=== PATIENT | female | born 1965 | race African-American/Black ===

== ENCOUNTER 2017-10-07 17:04 | Emergency (ER) | payer BC ==
[2017-10-07] MEDS: LIDOCAINE 2% 20 ML VIAL. IJ ×2 (17:30)
[2017-10-07] MEDS: GELATIN SPONGE SIZE 12-7MM SPONGE. TP ×2 (18:40)
[2017-10-07] MEDS: HYDROcodone/APAP 5/325MG 1 TAB TABLET PO ×2 (18:40)
[2017-10-07] MEDS: DIPHTH,PERTUSS(ACELL),TET TOX 0.5 ML DISP.SYRIN. VAX IM ×2 (19:00)
== END 2017-10-07 19:13 | disposition home or self-care (01) ==
LOC: ER 17:04
DX: S61.213A Laceration without foreign body of left middle finger without damage to nail, initial encounter (principal); S61.215A Laceration without foreign body of left ring finger without damage to nail, initial encounter; W27.0XXA Contact with workbench tool, initial encounter; Y93.89 Activity, other specified; Y92.89 Other specified places as the place of occurrence of the external cause; Y99.8 Other external cause status
CPT/HCPCS: 12001; 73140; 90471; 90715; 99284-25